=== PATIENT | female | born 1960 | race Caucasian/White ===

== ENCOUNTER 2021-06-28 11:58 | Observation (INO) | payer OTHER ==
[2021-06-28 12:09] VITALS: BMI 32.1
[2021-06-28] MEDS ORDERED: ASPIRIN 325 MG ENTERIC COATED TABLET (FP) ONE (13:23)
[2021-06-28 13:51] LABS: BASO % 0.8 % (0-2.0); EOS % 1.8 % (0-4.5); HEMATOCRIT 39.1 % (32.4-45.2); HEMOGLOBIN 13.4 GM/dL (10.7-15.3); LYMPH % 30.5 % (8-40); MCH 30.1 pg (25.7-33.7); MCHC 34.2 g/dl (32.0-36.0); MEAN CELL VOLUME 87.8 fl (80-96); MONO % 5.1 % (3.8-10.2); NEUT % 61.8 % (42.8-82.8); PLATELET COUNT 212 10^3/uL (134-434); RBC 4.45 M/mm3 (3.60-5.2); RDW 13.1 % (11.6-15.6); WHITE BLOOD COUNT 6.3 K/mm3 (4.0-10.0)
[2021-06-28] MEDS ORDERED: ASPIRIN 81 MG CHEWABLE TABLETS PO ONE (13:55)
[2021-06-28 14:11] LABS: CHLORIDE 106 mmol/L (98-107); SODIUM 139 mmol/L (136-145)
[2021-06-28 14:13] LABS: ALBUMIN 3.6 g/dl (3.4-5.0); ANION GAP 5 MMOL/L (8-16); CALCIUM 8.8 mg/dL (8.5-10.1); CO2 28 mmol/L (21-32)
[2021-06-28 14:15] LABS: GLUCOSE,RANDOM 105 mg/dL (74-106)
[2021-06-28 14:16] LABS: SGPT/ALT 22 U/L (13-61)
[2021-06-28] MEDS ORDERED: FAMOTIDINE 20 MG/50 ML IVPB 20 MG/50 ML MG IVPB ONE ×2 (14:16→14:40)
[2021-06-28 14:17] LABS: CREATININE 0.8 mg/dL (0.55-1.3); SGOT/AST 11 U/L (15-37)
[2021-06-28 14:18] LABS: BILIRUBIN,TOTAL 0.3 mg/dL (0.2-1)
[2021-06-28 14:19] LABS: ALK PHOS 117 U/L (45-117)
[2021-06-28] MEDS ORDERED: ASPIRIN 81 MG CHEWABLE TABLETS ONE (14:54)
[2021-06-28] MEDS ORDERED: ATORVASTATIN CA 40 MG TABLET (FP) PO SCH (22:00)
[2021-06-28] MEDS ORDERED: ATORVASTATIN CA 40 MG TABLET (FP) ONE (23:21)
[2021-06-29 07:32] LABS: HEMATOCRIT 36.9 % (32.4-45.2); HEMOGLOBIN 12.5 GM/dL (10.7-15.3); MCH 29.9 pg (25.7-33.7); MCHC 33.9 g/dl (32.0-36.0); MEAN CELL VOLUME 88.3 fl (80-96); MEAN PLT VOLUME 10.4 fl (7.5-11.1); PLATELET COUNT 216 10^3/uL (134-434); RBC 4.18 M/mm3 (3.60-5.2); RDW 13.1 % (11.6-15.6); WHITE BLOOD COUNT 6.5 K/mm3 (4.0-10.0)
[2021-06-29 07:54] LABS: CHOLESTEROL 220 mg/dL (50-200); TRIGLYCERIDES 148 mg/dL (0-150)
[2021-06-29 07:55] LABS: LDL CHOLESTEROL (ONLY SJRH) 142 mg/dL (5-100)
[2021-06-29 07:56] LABS: HDL CHOLESTEROL 38 mg/dL (40-60)
[2021-06-29 08:01] LABS: ALBUMIN 3.1 g/dl (3.4-5.0); BLOOD UREA NITROGEN 13.5 mg/dL (7-18); CALCIUM 8.8 mg/dL (8.5-10.1); MAGNESIUM 2.4 mg/dL (1.8-2.4)
[2021-06-29 08:04] LABS: CREATININE 0.8 mg/dL (0.55-1.3); PHOSPHOROUS 4.5 mg/dL (2.5-4.9)
[2021-06-29 08:05] LABS: BILIRUBIN,TOTAL 0.5 mg/dL (0.2-1)
[2021-06-29 08:06] LABS: TOT PROT 7.1 g/dl (6.4-8.2)
[2021-06-29] MEDS ORDERED: PANTOPRAZOLE 40 MG TABLET PO SCH (10:00)
[2021-06-29] MEDS ORDERED: ENOXAPARIN NA (PORCINE) 40 MG/0.4 ML DISP.SYRIN SQ SCH (10:00)
[2021-06-29 10:40] VITALS: PULSE 63
[2021-06-29 15:12] VITALS: BP 129/68; TEMP 98.2
== END 2021-06-29 20:42 | disposition home or self-care (01) ==
LOC: JER 11:58 → JERBED 17:24 → J4W 06-29 00:13
PROVIDERS: ADMIT Internal Medicine
PROC: 3E023GC Introduction of Other Therapeutic Substance into Muscle, Percutaneous Approach (ICD-10-PCS; principal; 2021-06-28)
PROC: 3E033GC Introduction of Other Therapeutic Substance into Peripheral Vein, Percutaneous Approach (ICD-10-PCS; 2021-06-28)
DX: R07.9 Chest pain, unspecified (principal); K21.9 Gastro-esophageal reflux disease without esophagitis; E78.5 Hyperlipidemia, unspecified; K76.0 Fatty (change of) liver, not elsewhere classified; Z29.9 Encounter for prophylactic measures, unspecified
CPT/HCPCS: 36415; 71046-TC-FY; 80053; 80061; 82550; 83735; 84100; 84484; 85025; 85027; 93005; 93010; 93306-TC; 96365; 96372; 99285-25; C9803; G0378; U0003; U0005